=== PATIENT | male | born 1970 | race Caucasian/White ===

== ENCOUNTER 2024-02-23 07:23 | Emergency (ER) | payer OTHER ==
[~2024-02-23] VITALS: Ht 180.3 cm; Wt 88.6 kg
[2024-02-23 07:29] VITALS: BP 142/96; PULSE 112; RESP 18; TEMP 98.1
[2024-02-23] MEDS: ACETAMINOPHEN 500 MG TABLET PO ONE (07:59)
== END 2024-02-23 08:12 | disposition home or self-care (01) ==
LOC: EMS 07:26
DX: G89.29 Other chronic pain (principal); M25.551 Pain in right hip; F20.9 Schizophrenia, unspecified; F17.210 Nicotine dependence, cigarettes, uncomplicated; F15.90 Other stimulant use, unspecified, uncomplicated
CPT/HCPCS: 99282; Z7502; Z7610